=== PATIENT | male | born 1945 | race Caucasian/White ===

== ENCOUNTER 2022-08-01 07:13 | Day surgery (SDC) | payer MEDICARE, OTHER ==
[~2022-08-01 07:13] MED LIST: Propofol 200 MG/20 ML SDV ONE
[2022-08-01] MEDS ORDERED: Lactated Ringers 1,000 ML IV ONE (07:45)
[2022-08-01] MEDS ORDERED: Cyanocobalamin (Vitamin B12) 1,000 MCG/ML SDV IM ONE (08:00)
[2022-08-01] MEDS ORDERED: MVI, Adult with Vitamin K 10 ML, Thiamine 200 MG, Zinc/Copper/Manganese/Selenium 1 ML i... IV ONE ×4 (08:45)
[2022-08-01] MEDS ORDERED: Lactated Ringers 1,000 ML ONE (09:14)
[2022-08-01] MEDS ORDERED: Pantoprazole 40 MG Vial IVPUSH ONE (09:20)
== END 2022-08-01 11:15 | disposition home or self-care (01) ==
LOC: JP.SDS 07:13
PROVIDERS: ATTEND Surgery
DX: K22.10 Ulcer of esophagus without bleeding (principal); K29.70 Gastritis, unspecified, without bleeding; I25.10 Atherosclerotic heart disease of native coronary artery without angina pectoris; I10 Essential (primary) hypertension; E78.5 Hyperlipidemia, unspecified; I42.9 Cardiomyopathy, unspecified; F32.A Depression, unspecified; Z98.84 Bariatric surgery status
CPT/HCPCS: 43239; 87081; C9113; J2704; J3411; J7120; J3490

== ENCOUNTER 2022-11-09 09:54 | Emergency (ER) | payer MEDICARE, OTHER ==
[2022-11-09 11:06] LABS: BASOPHILS ABSOLUTE AUTO 0.07 K/uL (0.00-0.10); EOSINOPHILS ABSOLUTE AUTO 0.32 K/uL (0.00-0.40); EOSINOPHILS PERCENT AUTO 4.5 % (0.0-5.4); HEMATOCRIT 36.6 % (38.4-49.7); HEMOGLOBIN 12.2 g/dL (12.9-16.9); IMMATURE GRAN PERCENT AUTO 0.1 % (0.0-0.7); LYMPHOCYTES ABSOLUTE AUTO 2.11 K/uL (0.8-3.3); LYMPHOCYTES PERCENT AUTO 29.3 % (11.4-47.7); MEAN CORPUSCULAR HEMOGLOBIN 31.5 pg (31.6-35.5); MEAN CORPUSCULAR HGB CONC 33.3 g/dL (31.6-35.5); MEAN CORPUSCULAR VOLUME 94.6 fL (81.4-99.0); MONOCYTES ABSOLUTE AUTO 1.08 K/uL (0.20-0.90); NEUTROPHILS PERCENT AUTO 50.1 % (40.0-78.1); PLATELET COUNT,PLT 239 K/uL (130-375); RED BLOOD CELL COUNT 3.87 M/uL (4.14-5.76); WHITE BLOOD CELL COUNT,WBC 7.2 K/uL (3.2-11.0)
[2022-11-09 11:12] LABS: BASE EXCESS VENOUS 2.6 mm/L; BICARBONATE,VENOUS 26.9 mmol/L; CARBOXYHEMOGLOBIN 2.4 % (0.0-1.6); IMMATURE GRAN ABSOLUTE AUTO 0.01 K/uL (0.00-0.23); METHEMOGLOBIN 0.9 %; O2 SATURATION VENOUS 82.4; OXYHEMOGLOBIN 79.7 %; PCO2 VENOUS 42.7 mm/Hg; PH,VENOUS 7.416 (7.350-7.450); PO2 VENOUS 48.2 mm/Hg; TOTAL HEMOGLOBIN 12.6 g/dL (13.5-18.0)
[2022-11-09 11:26] LABS: A/G RATIO 0.8 (1.2-2.2); ALANINE AMINOTRANSFERASE,ALT 34 U/L (12-78); ALBUMIN 3.1 g/dL (3.4-5.0); ALKALINE PHOSPHATASE 139 U/L (46-116); ASPARTATE AMNIOTRANSFERASE,AST 45 U/L (15-37); BILIRUBIN TOTAL 0.2 mg/dL (0.2-1.0); BLOOD UREA NITROGEN,BUN 18 mg/dL (7-18); CALCIUM 8.7 mg/dL (8.5-10.1); CARBON DIOXIDE,CO2 28 mmol/L (21-32); CHLORIDE,CL 101 mmol/L (100-108); CREATININE 1.2 mg/dL (0.8-1.3); EST CRCL DRUG DOSING (CG) 49.08 mL/min; ESTIMATED GFR 62 mL/min (>60); GLUCOSE RANDOM 98 mg/dL (74-106); POTASSIUM,K 4.7 mmol/L (3.6-5.2); PROTEIN TOTAL,TP 6.8 g/dL (6.4-8.2); SODIUM,NA 136 mmol/L (140-148)
[2022-11-09 11:28] LABS: ANION GAP 11.7 mmol/L (5.0-14.0)
== END 2022-11-09 13:44 | disposition home or self-care (01) ==
LOC: JP.ED 09:54
DX: S00.83XA Contusion of other part of head, initial encounter (principal); J06.9 Acute upper respiratory infection, unspecified; B97.89 Other viral agents as the cause of diseases classified elsewhere; E03.9 Hypothyroidism, unspecified; K21.9 Gastro-esophageal reflux disease without esophagitis; E66.9 Obesity, unspecified; Z68.36 Body mass index [BMI] 36.0-36.9, adult; Z87.891 Personal history of nicotine dependence; Z79.899 Other long term (current) drug therapy; Z95.0 Presence of cardiac pacemaker; Z20.822 Contact with and (suspected) exposure to COVID-19; W18.30XA Fall on same level, unspecified, initial encounter
CPT/HCPCS: 36415; 71046; 80053; 82803; 84145; 85025; 86140; 93005; 99284; U0002

== ENCOUNTER 2023-05-11 07:42 | Day surgery (SDC) | payer MEDICARE, OTHER ==
[~2023-05-11 07:42] MED LIST changes: +fentaNYL 100 MCG/2 ML SDV ONE
[2023-05-11] MEDS: Lactated Ringers 1,000 ML IV SCH (08:24)
[2023-05-11] MEDS ORDERED: Propofol 200 MG/20 ML SDV ONE (09:46)
== END 2023-05-11 11:15 | disposition home or self-care (01) ==
LOC: JP.SDS 07:42
PROVIDERS: ATTEND Student in an Organized Health Care Education/Training Program
DX: Z12.11 Encounter for screening for malignant neoplasm of colon (principal); I50.9 Heart failure, unspecified; G47.33 Obstructive sleep apnea (adult) (pediatric)
CPT/HCPCS: G0121; J2704; J3010; J7120